=== PATIENT | female | born 1970 | race Caucasian/White ===

== ENCOUNTER 2018-05-31 05:34 | Emergency (ER) | payer BC ==
[2018-05-31] MEDS ORDERED: Morphine 10 MG/ML VIAL ONE (06:29)
[2018-05-31] MEDS ORDERED: Sodium Chloride 0.9% 1,000 ML ONE (06:29)
[2018-05-31 06:45] LABS: #Basophils 0.1 thou/uL (0.0-0.2); #Eosinphils 0.1 thou/uL (0.0-0.7); #Lymphocytes 3.2 thou/uL (1.20-3.40); #Monocytes 0.6 thou/uL (0.11-0.59); #Neutrophils 6.5 thou/uL (1.40-6.50); %Basophils 0.7 % (0.0-1.0); %Eosinophils 0.8 % (0.0-10.0); %Lymphocytes 30.3 % (21.0-51.0); %Monocytes 6.1 % (0.0-10.0); %Neutrophils 62.1 % (42.0-75.0); Mean Corpuscular HGB CONC 31.6 g/dL (32.0-36.0); Mean Corpuscular Hemoglobin 27.5 pg (27.0-31.0); Mean Corpuscular Volume 87.1 fL (78.0-98.0); Mean Platelet Volume 5.8 fL (7.4-10.4); Platelet Count 300 thou/uL (130-400); RBC Distribution Width 12.1 % (11.5-14.5); Red Blood Cell (RBC) Count 5.08 mill/uL (4.20-5.40); White Blood Cell (WBC) Count 10.5 thou/uL (4.8-10.8)
[2018-05-31 06:51] LABS: INR-International Normal Ratio 0.9; PTT 23.8 SEC (22.9-36.1); Prothrombin Time 12.1 SEC (12.0-14.7)
[2018-05-31 07:01] LABS: ALT (SGPT) 35 U/L (8-55); AST (SGOT) 19 U/L (5-34); Albumin 4.4 g/dL (3.5-5.0); Alkaline Phosphatase 54 U/L (40-150); Anion Gap 15 mmol/L (10-20); BUN (Urea Nitrogen) 15 mg/dL (9.8-20.1); Bilirubin, Total 0.8 mg/dL (0.2-1.2); Calc. Creatinine Clearance 0 mL/min (70-130); Carbon Dioxide 28 mmol/L (22-29); Chloride 101 mmol/L (98-107); Estimated GFR-MDRD 72; Globulin 2.9 g/dL (2.4-3.5); Glucose 69 mg/dL (70-105); Potassium 3.4 mmol/L (3.5-5.1); Protein, Total 7.3 g/dL (6.0-8.3); Sodium 141 mmol/L (136-145)
[2018-05-31] MEDS ORDERED: Morphine 4 MG/ML VIAL ONE (07:50)
--- NOTE | 2018-05-31 07:54 | RAD ---
CHEST 1 VIEW: INDICATION: Trauma. COMPARISON: None. FINDINGS: The left lung apices excluded. The visualized lungs are clear. Heart size is normal. No acute osse ous abnormality is noted. IMPRESSION: No acute cardiopulmonary abnormality. Limitation of the exam. POS: BH
--- NOTE | 2018-05-31 07:56 | CT ---
CT OF THE BRAIN WITHOUT CONTRAST: Date: 05/31/18 INDICATION: History of fall down stairs without loss of consciousness. COMPARISON: None. FINDINGS: No acute infarct, hemorrhage, or hydrocephalus present. There is mild chronic small vessel white perez er ischemic change. Skull and extracranial soft tissues are unremarkable appearing. IMPRESSION: No acute intracranial abnormality. POS: BH
--- NOTE | 2018-05-31 07:58 | RAD ---
AP VIEW OF THE PELVIS: INDICATION: History of trauma. COMPARISON: None. FINDINGS: No acute fracture is evident. There are multiple phleboliths within the lower pelvis. Lower lumbar spine and SI joints appear within normal limits. IMPRESSION: No acute osseous abnormality. POS: BH
--- NOTE | 2018-05-31 08:00 | CT ---
CT CERVICAL SPINE WITHOUT COTNRAST: INDICATION: History of slipped and fall with possible neck injury. COMPARISON: None. FINDINGS: No acute fracture or subluxation is evident. Craniocervical junction is normal-appearing. Osseous c entral canal is preserved. Lung apices are clear. Prevertebral soft tissues are normal-appearing. IMPRESSION: No acute fracture or subluxation demonstrated. POS: BH
--- NOTE | 2018-05-31 08:04 | CT ---
CT LUMBAR SPINE WITHOUT CONTRAST: INDICATION: History of fall down stairs with low back pain and left-sided radicular pain. 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 No acute f racture or subluxation is evident. There is mild degenerative change of the SI joints. There is mil d multilevel degenerative disk changes of the lumbar spine. No appreciable osseous central canal or neural foraminal narrowing is evident. The visualized retroperitoneum demonstrates small stippled no nobstructing calculi involving both kidneys. The largest in either kidney measures approximately 3 m m. There are a few scattered colonic diverticula. No lymphadenopathy is evident. IMPRESSION: 1. No acute fracture or subluxation. 2. Postoperative change of the lumbar spine. 3. Bilateral nephrolithiasis. POS: BH
--- NOTE | 2018-05-31 08:19 | CT ---
CT OF THE THORACIC SPINE WITHOUT CONTRAST: Date: 05/31/18 INDICATION: History of fall down three stairs with concern for back injury. FINDINGS: No definite acute fracture or subluxation is evident. There is mild multilevel spondylosis of the tho racic spine. Osseous central canal appears relatively well preserved. Spinal alignment is preserved. Visualized lungs ae clear. There is a 3.0 mm calculus within the right mid kidney. IMPRESSION: No acute fracture or subluxation demonstrated. Incidental note is made of right nephrolithiasis. POS: BH
== END 2018-05-31 08:36 | disposition home or self-care (01) ==
LOC: EDBD 05:34 → MADERS 05:34
DX: S16.1XXA Strain of muscle, fascia and tendon at neck level, initial encounter (principal); M54.5 Low back pain; I10 Essential (primary) hypertension; Z86.73 Personal history of transient ischemic attack (TIA), and cerebral infarction without residual deficits; Z79.899 Other long term (current) drug therapy; W19.XXXA Unspecified fall, initial encounter
CPT/HCPCS: 70450; 71045; 72125; 72128; 72131; 72170; 80053; 85025; 85610; 85730; 96361; 96374; 96376; J2270; J7050